=== PATIENT | male | born 1960 | race African-American/Black ===

== ENCOUNTER 2024-08-29 04:25 | Inpatient (IN) | payer OTHER ==
[2024-08-29] VITALS: BP 129/64; PULSE 56; RESP 20; TEMP 36.33624; O2SAT 98
[~2024-08-29] VITALS: Ht 170.2 cm; Wt 67.2 kg
[2024-08-29 05:02] LABS: EOSINOPHILS % 3.5 % (0.0-5.0); HEMOGLOBIN. 13.8 g/dL (14.0-18.0); MEAN CORPUSCULAR HEMOGLOBIN 33.6 pg (28.0-32.0); MEAN CORPUSCULAR HGB CONC 33.8 g/dL (31.0-37.0); MEAN CORPUSCULAR VOLUME 99.5 fL (80.0-94.0); MEAN PLATELET VOLUME 7.3 fl (7.4-10.4); MONOCYTES % 10.2 % (2.0-8.0); NEUTROPHILS % 68.3 % (40.0-76.0); PLATELET 284 x1000/uL (130-400); RED BLOOD CELL COUNT 4.12 mill/uL (4.7-6.1); RED CELL DISTRIBUTION WIDTH 13.1 % (11.6-14.6); WHITE BLOOD COUNT 6.5 x1000/uL (4.5-11.0)
[2024-08-29 05:09] LABS: CHLORIDE 106 mEq/L (98-107); POTASSIUM 3.6 mEq/L (3.5-5.1); SODIUM 140 mEq/L (136-145)
[2024-08-29 05:10] LABS: CARBON DIOXIDE 29 mEq/L (21-32)
[2024-08-29] MEDS ORDERED: PANTOPRAZOLE SODIUM 40 MG/VIAL IV STA (05:10)
[2024-08-29 05:15] LABS: CREATININE 1.6 mg/dL (0.6-1.3); GLUCOSE 132 mg/dL (70-105); UREA NITROGEN BLOOD 27 mg/dL (9-23)
[2024-08-29 05:16] LABS: ETHANOL BLOOD < 10 mg/dL (<10)
[2024-08-29 05:17] LABS: ALANINE AMINOTRANSFERASE 15 IU/L (10-49); ALBUMIN 4.7 g/dL (3.2-4.8); ASPARTATE AMINOTRANSFERASE 22 IU/L (<34); BILIRUBIN DIRECT 0.2 mg/dL (<=3.0); BILIRUBIN TOTAL 0.6 mg/dL (0.1-1.0); PROTEIN TOTAL 7.9 g/dL (6.0-8.3)
[2024-08-29 05:39] LABS: INR 0.9; PROTHROMBIN TIME 10.2 sec (9.6-11.0)
[2024-08-29] MEDS: ONDANSETRON HCL 4MG/2ML INJ IV ONE (06:59)
[2024-08-29] MEDS: PANTOPRAZOLE SODIUM 40 MG/VIAL IV NR (06:59)
[2024-08-29] MEDS: MORPHINE SULFATE 4 MG/ML INJ (FOR IV/IM USE) IV ONE (07:00)
[2024-08-29] MEDS: SODIUM CHLORIDE 0.9% 1,000 ML IV ONE (07:27)
[2024-08-29] MEDS ORDERED: ACETAMINOPHEN 325MG TABLET PO PRN (08:15)
[2024-08-29] MEDS ORDERED: DEXTROSE 50% WATER 50ML SYRINGE IV PRN (08:15)
[2024-08-29] MEDS ORDERED: MAGNESIUM/ALUMINUM HYDROXIDE/SIMETHICONE 30ML UDC PO PRN (08:15)
[2024-08-29] MEDS ORDERED: IPRATROPIUM/ALBUTEROL 0.5-3(2.5)MG/3ML NEB HHN PRN (08:15)
[2024-08-29 09:20] LABS: VITAMIN B12 SERUM 294 pg/mL (211-911)
[2024-08-29] MEDS: SODIUM CHLORIDE 0.45% 1,000 ML IV SCH (09:20)
[2024-08-29 09:21] LABS: FERRITIN 117 ng/mL (22-322); FOLIC ACID (FOLATE) SERUM 18.66 ng/mL (>5.38)
[2024-08-29] MEDS: BLOOD SUGAR DIAGNOSTIC STRIP TEST SCH (09:21)
[2024-08-29] MEDS: TAMSULOSIN HCL 0.4MG SR CAPSULE PO SCH (10:00)
[2024-08-29] MEDS: CEFTRIAXONE 1GM/50ML 50 ML IV SCH (10:00)
[2024-08-29] MEDS: METRONIDAZOLE 500 MG PREMIX 100 ML IV SCH (10:56)
[2024-08-29 11:17] LABS: IRON 50 ug/dL (65-175)
[2024-08-29 11:19] LABS: PHOSPHORUS 3.8 mg/dL (2.5-4.9)
[2024-08-29 11:20] LABS: TOTAL IRON BINDING CAPACITY 231 ug/dl (250-425)
[2024-08-29] MEDS: KETOROLAC 30MG/ML VIAL IV SCH (12:48)
[2024-08-29] MEDS: DIAZEPAM 5 MG/ML 2ML SYR IV SCH (12:48)
[2024-08-29 20:30] VITALS: BP 154/75; PULSE 75; RESP 18; TEMP 36.72516; TEMP 36.7516; O2SAT 96
[2024-08-29] MEDS ORDERED: NALOXONE HCL 0.4MG/ML VIAL IV PRN (20:30)
[2024-08-29 21:05] LABS: CLARITY URINE CLEAR (CLEAR); COLOR URINE YELLOW (YELLOW); GLUCOSE URINE NEGATIVE (NEGATIVE); KETONES URINE NEGATIVE (NEGATIVE); LEUKOCYTE ESTERASE URINE 1+ (NEGATIVE); NITRITE URINE NEGATIVE (NEGATIVE); OCCULT BLOOD URINE 3+ (NEGATIVE); PH URINE 5.5 (4.5-8.0); PROTEIN URINE 1+ (NEGATIVE)
[2024-08-29 21:24] LABS: BACTERIA URINE 1+; SQUAMOUS EPITHELIAL CELL URINE FEW /lpf (RARE/1+)
[2024-08-29 21:25] LABS: RBC URINE 15-25 /hpf (0-2)
[2024-08-29 21:57] LABS: *AMPHETAMINES SCREEN URINE NEGATIVE (NEGATIVE); *BARBITURATES SCREEN URINE NEGATIVE (NEGATIVE); *BENZODIAZEPINES SCREEN URINE PRESUMPTIVE POSITIVE (NEGATIVE); *COCAINE SCREEN URINE PRESUMPTIVE POSITIVE (NEGATIVE); CANNABINOID URINE SCREEN NEGATIVE (NEGATIVE); ECSTASY MDMA SCREEN URINE NEGATIVE (NEGATIVE); METHADONE URINE SCREEN NEGATIVE (NEGATIVE); OPIATES URINE SCREEN PRESUMPTIVE POSITIVE (NEGATIVE); PHENCYCLIDINE URINE SCREEN NEGATIVE (NEGATIVE)
[2024-08-29 22:14] LABS: CREATINE KINASE 193 IU/L (46-171)
[2024-08-29 22:15] LABS: CREATINE KINASE MB FRACTION 5.5 ng/mL (0.5-3.6); TROPONIN I HIGH SENSITIVITY 21 ng/L (3.0-53)
[2024-08-29] MEDS: KETOROLAC 15MG/ML VIAL IV SCH (23:33)
[2024-08-30] VITALS: BP 129/64; PULSE 56; RESP 20; TEMP 36.33624; O2SAT 98
[2024-08-30 01:09] LABS: CREATINE KINASE MB FRACTION 5.4 ng/mL (0.5-3.6)
[2024-08-30 04:00] VITALS: BP 126/67; PULSE 54; RESP 19; TEMP 36.55848; O2SAT 97
[2024-08-30 06:39] LABS: POTASSIUM 3.8 mEq/L (3.5-5.1)
[2024-08-30 06:40] LABS: CALCIUM 8.9 mg/dL (8.7-10.4)
[2024-08-30 06:42] LABS: T4 FREE 1.26 ng/dL (0.89-1.76)
[2024-08-30] MEDS: METRONIDAZOLE 500 MG PREMIX 100 ML IV SCH (06:42)
[2024-08-30 06:43] LABS: THYROID STIMULATING HORMONE 1.49 uIU/mL (0.55-4.78)
[2024-08-30 06:45] LABS: CREATININE 1.9 mg/dL (0.6-1.3)
[2024-08-30 06:48] LABS: BASOPHILS % 0.9 % (0.0-2.0); EOSINOPHILS % 4.4 % (0.0-5.0); HEMATOCRIT. 38.6 % (42.0-52.0); HEMOGLOBIN. 12.8 g/dL (14.0-18.0); LYMPHOCYTES % 22.6 % (20.0-50.0); MEAN CORPUSCULAR HEMOGLOBIN 32.9 pg (28.0-32.0); MEAN CORPUSCULAR HGB CONC 33.1 g/dL (31.0-37.0); MEAN CORPUSCULAR VOLUME 99.6 fL (80.0-94.0); MEAN PLATELET VOLUME 8.2 fl (7.4-10.4); NEUTROPHILS % 60.1 % (40.0-76.0); PLATELET 256 x1000/uL (130-400); RED BLOOD CELL COUNT 3.88 mill/uL (4.7-6.1); RED CELL DISTRIBUTION WIDTH 13.1 % (11.6-14.6); WHITE BLOOD COUNT 5.1 x1000/uL (4.5-11.0)
[2024-08-30 08:00] VITALS: BP 138/72; PULSE 59; RESP 18; TEMP 36.114; O2SAT 98
[2024-08-30 08:14] LABS: PROSTATE SPECIFIC AG TOTAL 0.4 ng/mL (0.0-4.0); VITAMIN D 25-OH 20.3 ng/mL (30.0-100.0)
[2024-08-30] MEDS: PANTOPRAZOLE SODIUM 40 MG/VIAL IV SCH (09:30)
[2024-08-30] MEDS: CEFTRIAXONE 1GM/50ML 50 ML IV SCH (09:31)
[2024-08-30] MEDS ORDERED: PROPOFOL 200MG/20ML VIAL IV ONE (11:51)
[2024-08-30] MEDS ORDERED: LIDOCAINE HCL/PF 1% 10 MG/ML 5ML VIAL ONE (11:51)
[2024-08-30] MEDS ORDERED: FENTANYL CITRATE/PF 50MCG/ML 2ML VIAL ONE (11:51)
[2024-08-30] MEDS ORDERED: SUCCINYLCHOLINE CHLORIDE 200MG/10ML IV ONE (11:51)
[2024-08-30 12:00] VITALS: BP 153/78; PULSE 56; RESP 18; TEMP 36.16956; O2SAT 99
[2024-08-30] MEDS ORDERED: EPHEDRINE SULFATE 50MG/ML VIAL ONE (12:29)
[2024-08-30] MEDS ORDERED: ONDANSETRON HCL 4MG/2ML INJ IV PRN (13:15)
[2024-08-30] MEDS ORDERED: HYDROMORPHONE HCL/PF 1MG/ML INJ IV PRN (13:15)
[2024-08-30] MEDS ORDERED: GLYCOPYRROLATE 0.2 MG/ML 2ML VIAL IV PRN (13:15)
[2024-08-30 16:00] VITALS: BP 153/70; PULSE 63; RESP 20; TEMP 36.05844; O2SAT 98
[2024-08-30 20:00] VITALS: BP 120/58; PULSE 69; RESP 20; TEMP 36.3918; O2SAT 98
[2024-08-31] VITALS: BP 122/79; PULSE 55; RESP 19; TEMP 36.3918; O2SAT 97
[2024-08-31 04:00] VITALS: BP 133/68; PULSE 53; RESP 19; TEMP 35.89176; O2SAT 98
[2024-08-31 06:32] LABS: POTASSIUM 4.1 mEq/L (3.5-5.1)
[2024-08-31 06:33] LABS: CALCIUM 8.9 mg/dL (8.7-10.4)
[2024-08-31 06:38] LABS: CREATININE 2.2 mg/dL (0.6-1.3)
[2024-08-31 06:40] LABS: HEMATOCRIT 38.2 % (42.0-52.0); HEMOGLOBIN 12.6 g/dL (14.0-18.0); MEAN CORPUSCULAR HEMOGLOBIN 33.4 pg (28.0-32.0); MEAN CORPUSCULAR VOLUME 100.9 fL (80.0-94.0); PLATELET 248 x1000/uL (130-400); RED BLOOD CELL COUNT 3.79 mill/uL (4.7-6.1); RED CELL DISTRIBUTION WIDTH 13.2 % (11.6-14.6); WHITE BLOOD COUNT 6.1 x1000/uL (4.5-11.0)
[2024-08-31 08:00] VITALS: BP 145/54; PULSE 62; RESP 20; TEMP 36.44736; O2SAT 96
[2024-08-31 12:00] VITALS: BP 159/84; PULSE 67; RESP 19; TEMP 36.114; O2SAT 96
[2024-08-31] MEDS: SODIUM CHLORIDE 0.9% 1,000 ML IV SCH (12:15)
[2024-08-31 16:00] VITALS: BP 167/80; PULSE 76; RESP 20; TEMP 36.114; O2SAT 96
[2024-08-31 20:00] VITALS: BP 148/72; PULSE 81; RESP 19; TEMP 37.7808; O2SAT 97
[2024-08-31] MEDS: LORAZEPAM 2MG/ML INJ IV NR (21:39)
[2024-09-01] VITALS: BP 167/81; PULSE 72; RESP 19; TEMP 36.61404; O2SAT 98
[2024-09-01] MEDS: HYDRALAZINE 20MG/ML VIAL IV PRN (01:39)
[2024-09-01] MEDS: LORAZEPAM 2MG/ML INJ IV NR (04:19)
[2024-09-01] MEDS: DOCUSATE SODIUM 100MG CAPSULE PO PRN (05:58)
[2024-09-01] MEDS: MORPHINE SULFATE 2 MG/ML INJ (NOT FOR IM USE) IV PRN (06:00)
[2024-09-01 08:00] VITALS: BP 168/90; PULSE 86; RESP 18; TEMP 36.55848; O2SAT 93
[2024-09-01 10:31] LABS: HEMATOCRIT 40.4 % (42.0-52.0); HEMOGLOBIN 13.4 g/dL (14.0-18.0); MEAN CORPUSCULAR HEMOGLOBIN 32.9 pg (28.0-32.0); MEAN CORPUSCULAR VOLUME 99.7 fL (80.0-94.0); PLATELET 294 x1000/uL (130-400); RED BLOOD CELL COUNT 4.06 mill/uL (4.7-6.1); RED CELL DISTRIBUTION WIDTH 13.2 % (11.6-14.6); WHITE BLOOD COUNT 9.8 x1000/uL (4.5-11.0)
[2024-09-01 10:34] LABS: CALCIUM 9.5 mg/dL (8.7-10.4); CARBON DIOXIDE 26 mEq/L (21-32); CHLORIDE 105 mEq/L (98-107); SODIUM 137 mEq/L (136-145)
[2024-09-01 10:39] LABS: CREATININE 2.2 mg/dL (0.6-1.3); GLUCOSE 163 mg/dL (70-105)
[2024-09-01 10:40] LABS: UREA NITROGEN BLOOD 26 mg/dL (9-23)
[2024-09-01 10:42] LABS: PHOSPHORUS 2.9 mg/dL (2.5-4.9)
[2024-09-01] MEDS ORDERED: IBUP-2028 PO (11:41)
[2024-09-01 12:00] VITALS: BP 175/90; PULSE 92; RESP 18; TEMP 36.72516; O2SAT 97
[2024-09-01 13:29] VITALS: BP 128/57; PULSE 78; TEMP 97.1; O2SAT 100
[2024-09-01 18:50] VITALS: BP 128/57; PULSE 78; TEMP 97.4; O2SAT 99
[2024-09-01 20:00] VITALS: BP 153/81; PULSE 82; RESP 18; TEMP 36.50292; O2SAT 99
== END 2024-09-01 21:00 | disposition home or self-care (01) | DRG 690 ==
LOC: ER 04:25 → 7EST 06:59 → 5WST 18:54 → 7EST 20:21
PROVIDERS: ADMIT Preventive Medicine Clinical Informatics; ATTEND Preventive Medicine Clinical Informatics
PROC: 0TC68ZZ Extirpation of Matter from Right Ureter, Via Natural or Artificial Opening Endoscopic (ICD-10-PCS; principal; 2024-08-30)
DX: N13.6 Pyonephrosis (principal); Z59.00 Homelessness unspecified; N17.9 Acute kidney failure, unspecified; I10 Essential (primary) hypertension; E11.65 Type 2 diabetes mellitus with hyperglycemia; N18.9 Chronic kidney disease, unspecified; M43.06 Spondylolysis, lumbar region; N40.0 Benign prostatic hyperplasia without lower urinary tract symptoms; F14.99 Cocaine use, unspecified with unspecified cocaine-induced disorder; F17.210 Nicotine dependence, cigarettes, uncomplicated; I25.2 Old myocardial infarction; Z79.899 Other long term (current) drug therapy
CPT/HCPCS: 36415; 71045; 74176; 80048; 80061; 80076; 80305; 80320; 81003; 82306; 82550; 82553; 82607; 82728; 82746; 82962; 83036; 83540; 83550; 83605; 83735; 84100; 84145; 84153; 84439; 84443; 84484; 85025; 85027; 86850; 86900; 93005; 99285; C1769; J0330; J0360; J0696; J1885; J2060; J2270; J2405; J2470; J2704; J3010; J3490; J7030; G0480